=== PATIENT | female | born 1975 | race Caucasian/White ===

== ENCOUNTER 2016-08-08 11:32 | Emergency (ER) | payer MEDICAID, OTHER ==
[~2016-08-08] VITALS: Wt 61.5 kg
[2016-08-08 12:18] LABS: URINE BLOOD (Dip) POC Trace-intact (NEGATIVE)
--- NOTE | 2016-08-08 13:12 | RADRPT ---
PROCEDURE: CT Brain without contrast. CLINICAL INDICATION: Headaches. TECHNIQUE: A CT of the brain was performed on multidetector high-resolution CT scanner utilizing a xial sections from the skull base through the vertex without contrast. One or more of the following dose reduction techniques were used: Automated exposure control, Adjustment of the mA and/or kV acc ording to patient size, and/or use of iterative reconstruction technique. DOSE: CTDI = 45 mGy and the DLP = 630 mGy-cm. COMPARISON: None available FINDINGS: No acute intracranial hemorrhage, significant mass effect or midline shift. The chaney-white different iation is grossly preserved. The ventricles are normal in size for age. No significant opacification of the visualized paranasal sinuses or mastoids. IMPRESSION: No acute intracranial abnormality identified. RPTAT: AA .Dennis Madrid MD, Date Time Electronically viewed and signed by .Dennis Madrid MD, MD on 08/08/2016 13:12 .T/
[2016-08-08] MEDS ORDERED: ACET500C5 PO (13:27)
--- NOTE | 2016-08-08 13:30 | ERD ---
ER Documentation Chief Complaint Date/Time DATE: 08/08/16 TIME: 13:28 Chief Complaint fell forward last night from sitting position, struck head, +ko HPI This 41-year-old female presents after getting dizzy and having a syncopal episode while getting up to use the bathroom last night. She hit her head on the sink. She feels like she had a loss of consciousness. She has a large hematoma on her forehead. She denies any visual changes, vomiting, neck pain, weakness, bowel or bladder incontinence. She has no current symptoms of dizziness, chest pain or shortness of breath or additional symptoms. ROS All systems reviewed and are negative except as per history of present illness. Medications Home Meds Active Scripts Acetaminophen* (Tylophen*) 500 Mg Capsule, 1 CAP PO Q6H Y for PAIN AND OR ELEVATED TEMP, #15 CAP Prov:HAL GREENBERG MD 08/08/16 Reported Medications [None] No Conflict Check 10/19/10 Allergies Allergies: Coded Allergies: No Known Drug Allergies (Verified Allergy, Mild, 10/19/10) PMhx/Soc History of Surgery: No Anesthesia Reaction: No Hx Neurological Disorder: No Hx Respiratory Disorders: No Hx Cardiac Disorders: No Hx Psychiatric Problems: No Hx Miscellaneous Medical Probl: No Hx Alcohol Use: No Hx Substance Use: No Hx Tobacco Use: No Physical Exam Vitals Vital Signs Date Time Temp Pulse Resp B/P Pulse Ox O2 Delivery O2 Flow Rate FiO2 08/08/16 11:35 98.8 81 20 118/69 100 Physical Exam Const: [] Alert, [id number], talkative. Head: There is a hematoma which is significant on the forehead without appreciable step-offs or deformities. Eyes: Normal Conjunctiva. Eyes are PERRLA and extraocular movements intact. ENT: Normal External Ears, Nose and Mouth. Neck: Full range of motion..~ No meningismus. Neck nontender. Resp: Clear to auscultation bilaterally Cardio: Regular rate and rhythm, no murmurs Abd: Soft, non tender, non distended. Normal bowel sounds Skin: No petechiae or rashes Back: No midline or flank tenderness Ext: No cyanosis, or edema Neur: Awake and alert. Normal gait. No appreciable focal neurologic deficits. Psych: Normal Mood and Affect Results 24 hrs Laboratory Tests Test 08/08/16 12:18 Bedside Urine pH (LAB) 6.5 Bedside Urine Protein (LAB) Negative Bedside Urine Glucose (UA) Negative Bedside Urine Ketones (LAB) Negative Bedside Urine Blood Trace-intact Bedside Urine Nitrite (LAB) Negative Bedside Urine Leukocyte Esterase (L Negative Procedures/MDM CT brain was performed which was read as normal by the radiologist. Patient presents after what is consistent with a vasovagal episode while getting up to use the bathroom in the middle the night. Patient has a normal exam currently except for the hematoma on her forehead. Signs or symptoms do not suggest neurologic deficit, acute cardiovascular etiology of syncope or dizziness and no evidence of bleeding, neurologic deficit. She will be treated with Tylenol and further observation at home. Is no evidence of neck injury. The patient was stable with no new complaints during the ER course. Clinically, there is no current evidence to suggest meningitis, sepsis, acute abdomen, pneumonia, acute coronary syndrome, pulmonary embolism, or any other emergent condition appearing to require further evaluation or hospitalization. The patient should certainly return for any new or worsening symptoms per the aftercare instructions. They should otherwise follow-up with her primary care doctor for reevaluation this week. Departure Diagnosis: Primary Impression: Head injury Encounter type: initial encounter Qualified Code: S09.90XA - Head injury, initial encounter Additional Impression: Headache Headache type: unspecified Headache chronicity pattern: unspecified pattern Intractability: not intractable Qualified Code: R51 - Nonintractable headache, unspecified chronicity pattern, unspecified headache type Condition: Stable Patient Instructions: HEAD INJURY, No Wake-Up (Adult), Syncope, Vasovagal Additional Instructions: Examines normal hoy. Cheque otro vez con rangel doctor primario en el proximo gaspar or regresa para mas o nueva simptomas. HAL GREENBERG MD Aug 08, 2016 13:30
== END 2016-08-08 13:48 | disposition home or self-care (01) ==
LOC: FTE 11:32
DX: S09.90XA Unspecified injury of head, initial encounter (principal); R51 Headache; W18.09XA Striking against other object with subsequent fall, initial encounter; Y92.002 Bathroom of unspecified non-institutional (private) residence as the place of occurrence of the external cause
CPT/HCPCS: 70450; 81003

== ENCOUNTER 2016-12-20 10:24 | Day surgery (SDC) | payer OTHER ==
--- NOTE | 2016-12-19 22:16 | PREOPHP ---
DATE OF ADMISSION: 12/20/2016 CHIEF COMPLAINT: The patient wishes to be sterilized. Requesting an Essure procedure. HISTORY OF PRESENT ILLNESS: This is a 41-year-old female, 2, para 2, who has been using control pills for quite some time. Her last menstrual period was 11/22/2016 and she is requesting a sterilization. Both procedures, Essure and laparoscopic bilateral tubal ligation were discussed in detail in the office. The alternatives, the risks, benefits, and the possible complications, as well as 1 percent failure rate of the procedure was discussed. The patient would prefer hysteroscopic Essure placement. She has signed the appropriate surgical informed consent both hysteroscopic occlusion with Essure implant and laparoscopic bilateral tubal ligation. PAST MEDICAL HISTORY: The patient denies any medical problems, including cardiovascular disease, diabetes, renal disease, liver disease, thyroid disease, or neurological problems. FAMILY HISTORY: Noncontributory. REVIEW OF SYSTEMS: A 12 point review of systems is noncontributory. PHYSICAL EXAMINATION: GENERAL APPEARANCE: Well developed, well nourished, in no distress. Alert and orient times 3. VITAL SIGNS: With a height of 5 feet 2 inches, weight 127, pounds. BMI is 24. Showed temperature to be 98, blood pressure 98/66, respirations 16 per minute, and pulse is 72 per minute and regular. HEENT: Within normal limits. The pupils are PERRLA. NECK: Supple. Thyroid is nonpalpable. There is no lymphadenopathy. No masses or lumps. LUNGS: Clear to percussion and auscultation. HEART: Normal sinus rhythm, without murmur. ABDOMEN: Soft. There are no organomegalies or hernias. PELVIC EXAM: Normal external genitalia. The vagina is normal. The cervix is normal without lesions. Bimanual exam, uterus is small, firm, midline, and no adnexal masses. EXTREMITIES: Lower extremities within normal limits. NEUROLOGIC: Normal. IMPRESSION: Patient desires sterilization. She is to be admitted tomorrow, 12/20/2016 at 12:30 for Essure placement versus laparoscopic tubal ligation. Dictated By: Wm Elliott MD /[email or web address] /Document#: [id number]
[~2016-12-20] VITALS: Ht 157.5 cm; Wt 55.0 kg
[2016-12-20] VITALS (8 sets, daily range): BP systolic 97–115; BP diastolic 48–74; PULSE 60–78; RESP 11–22; Ht 157.5 cm; Wt 55.0 kg
[~2016-12-20 10:24] MED LIST: ACET500C5 PO; DESFLURANE 15 MIN ONE
[2016-12-20] MEDS ORDERED: FENTAnyl 50 MCG/ML VIAL ONE ×2 (12:50→13:50)
[2016-12-20] MEDS ORDERED: DIPHENHYDRAMINE 50 MG INJ IV PRN (13:00)
[2016-12-20] MEDS ORDERED: MEPERIDINE 25 MG INJ IV PRN (13:00)
[2016-12-20] MEDS ORDERED: ONDANSETRON 4 MG INJ IV PRN ×2 (13:00→14:00)
[2016-12-20] MEDS ORDERED: OXYCODONE/ACETAMINOPHEN (5/325) TAB PO PRN ×3 (13:00→14:00)
[2016-12-20] MEDS ORDERED: HYDROmorphONE (0.2 MG/ML) 10ML SYG IV PRN ×2 (13:00)
[2016-12-20] MEDS ORDERED: FENTAnyl 50 MCG/ML VIAL IV PRN ×2 (13:00)
[2016-12-20] MEDS ORDERED: METOCLOPRAMIDE 10 MG INJ IV PRN (13:00)
[2016-12-20] MEDS ORDERED: ALBUTEROL 0.083% (NEB) 2.5 MG/3 ML AMP HHN PRN (13:00)
[2016-12-20] MEDS ORDERED: SUGAMMADEX SODIUM 200 MG/2 ML VIAL IV ONE (13:09)
[2016-12-20] MEDS ORDERED: ROCURONIUM 50 MG INJ ONE (13:09)
[2016-12-20] MEDS ORDERED: SUCCINYLCHOLINE CHLORIDE 100 MG/5 ML SYG IV ONE (13:09)
[2016-12-20] MEDS ORDERED: PROPOFOL 100 ML ONE (13:09)
[2016-12-20] MEDS ORDERED: LIDOCAINE 2% (SDV) 5 ML INJ ONE (13:09)
--- NOTE | 2016-12-20 13:49 | PD.PPDC ---
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
[2016-12-20] MEDS ORDERED: LACTATED RINGER'S 1,000 ML IV SCH (13:50)
[2016-12-20] MEDS ORDERED: IBUPROFEN 600 MG TAB PO PRN (14:00)
[2016-12-20] MEDS ORDERED: morphine 2 MG INJ IV PRN (14:00)
[2016-12-20] MEDS ORDERED: ACETAMINOPHEN 325 MG TAB PO PRN (14:00)
--- NOTE | 2016-12-20 14:01 | OPR ---
Operative Report Planned Procedure Free Text/Dictation Hysteroscopic bilateral Essure device.No complications. Procedure date Dec 20, 2016 Procedure(s) Hysteroscopic bilateral Essure device implants. Performed by: ROSALIO WARNER MD Anesthesiologist: GERHARD CHILEL Pre-procedure diagnosis Desires sterilization Post-Procedure Post-procedure diagnosis Same Findings: Normal cervix and uterine cavity. Specimen removed: No Complications: None Pt Condition post procedure: stable Physician Certification I, the undersigned physician, hereby certify that I have discussed the procedure described in this consent form with this patient (or the patient's legal employee relations representative), including: * The risk and benefits of the procedure; * Any adverse reactions that may reasonably be expected to occur; * Any alternative efficacious methods of treatment which may be medically viable ; * The potential problems that may occur during recuperation; * Potential for blood transfusion and associated risks/benefits; and * Any research or economic interest I may have regarding this treatment. I further certify that the patient/legally responsible person was encouraged to ask question and that all questions were answered. ROSALIO WARNER MD Dec 20, 2016 14:01
--- NOTE | 2016-12-20 16:56 | OPR ---
DATE OF OPERATION: 12/20/2016 PREOPERATIVE DIAGNOSIS: The patient desires sterilization. POSTOPERATIVE DIAGNOSIS: The patient desires sterilization OPERATION PERFORMED: Hysteroscopic bilateral Essure placement. SURGEON: Wm Elliott MD ANESTHESIA: General by Dr. Urrutia.. ESTIMATED BLOOD LOSS: Negligible. COMPLICATIONS: None. OPERATIVE PROCEDURE AND FINDINGS: With the patient under general anesthesia with endotracheal intubation by . The patient was placed on the table in the dorsal lithotomy position. She was prepped and draped in the usual sterile fashion for this procedure. A weighted posterior retractor was placed in the posterior vaginal wall and anterior lip of the cervix grasped with a single-tooth tenaculum. The hysteroscope with endotracheal camera was then advanced into the uterine cavity, it was distended with saline. The fallopian tubes ostia were found. The cavity was normal. The left side was done first without any problems, deploying the Essure device. The same was done on the contralateral side. Pictures were taken for documentation. All the instruments were then removed from the patient's vagina. She withstood the procedure well and was taken to the recovery room with all vital signs stable. Needle, sponge, and instrument count during the procedure was correct twice. Dictated By: Wm Elliott MD /[email or web address] /Document#: [id number] [facility] CENTERCarey
== END 2016-12-20 16:07 | disposition home or self-care (01) ==
LOC: SDS 10:24
PROVIDERS: ATTEND Specialist
DX: Z30.2 Encounter for sterilization (principal)
CPT/HCPCS: 58565; A4264; J2405; J3010; Z7512; Z7610; J7999